=== PATIENT | male | born 1955 | race Native Hawaiian/Other Pacific Islander ===

== ENCOUNTER 2016-12-18 22:10 | Inpatient (IN) | payer SELFPAY ==
[2016-12-18] MEDS ORDERED: ZOFRAN IV ONE (22:23)
[2016-12-18] MEDS ORDERED: ATIVAN IV ONE (22:28)
[2016-12-18] MEDS ORDERED: ATIVAN ONE (22:28)
[2016-12-18] MEDS ORDERED: ATIVAN IV PRN ×3 (22:29)
--- NOTE | 2016-12-18 23:23 | Emergency Department Report ---
ED N/V/D HPI - General Chief complaint: Nausea/Vomiting/Diarrhea Stated complaint: EMESIS Time Seen by Provider: 12/18/16 22:27 Source: patient, EMS Mode of arrival: Stretcher Limitations: No Limitations - History of Present Illness Initial comments: 61-year-old male presents to the emergency department via EMS complaining of nausea and vomiting. Patient states she began vomiting this morning. He is had multiple bouts of emesis. He denies seeing any blood. He also denies abdominal pain or diarrhea. There has been no fever. Patient does report that he is a heavy alcohol drinker, and has not had a drink in over 24 hours. He is also not been taking his high blood pressure medication or his seizure medication. He has not had a seizure. There are no other complaints. MD complaint: nausea, vomiting -: Gradual, This morning Description of Vomiting: food contents, watery Associated Abdominal Pain: No Consistency: intermittent Improves with: none Worsens with: none Context: alcohol abuse Associated Symptoms: denies other symptoms - Related Data Allergies Allergy/AdvReac Type Severity Reaction Status Date / Time Penicillins Allergy Severe Anaphylaxis Verified 12/18/16 22:23 ED Review of Systems ROS: Stated complaint: EMESIS Other details as noted in HPI Comment: All other systems reviewed and negative Gastrointestinal: nausea, vomiting ED Past Medical Hx - Past Medical History Previous Medical History?: Yes Hx Hypertension: Yes Hx Arthritis: Yes Hx Seizures: Yes - Surgical History Past Surgical History?: No - Family History Family history: no significant - Social History Smoking Status: Never Smoker Substance Use Type: Alcohol ED Physical Exam - General Limitations: No Limitations General appearance: alert, in no apparent distress - Head Head exam: Present: atraumatic, normocephalic - Eye Eye exam: Present: normal appearance, PERRL, EOMI - ENT ENT exam: Present: normal exam, normal orophraynx, mucous membranes moist - Neck Neck exam: Present: normal inspection, full ROM. Absent: tenderness - Respiratory Respiratory exam: Present: normal lung sounds bilaterally. Absent: respiratory distress - Cardiovascular Cardiovascular Exam: Present: normal rhythm, tachycardia, normal heart sounds - GI/Abdominal GI/Abdominal exam: Present: soft, normal bowel sounds. Absent: distended, tenderness - Extremities Exam Extremities exam: Present: normal inspection, full ROM. Absent: tenderness - Back Exam Back exam: Present: normal inspection, full ROM. Absent: tenderness - Neurological Exam Neurological exam: Present: alert, oriented X3, other (tremulousness noted). Absent: motor sensory deficit - Skin Skin exam: Present: warm, dry, intact ED Course Vital Signs 12/18/16 12/18/16 12/18/16 22:10 22:18 22:31 Temperature 98.2 F Pulse Rate 151 H 151 H 156 H Respiratory 29 H 27 H Rate Blood Pressure 153/51 172/66 O2 Sat by Pulse 100 98 Oximetry 12/18/16 12/18/16 12/19/16 23:00 23:30 00:00 Temperature Pulse Rate 147 H 147 H 147 H Respiratory 27 H 29 H 34 H Rate Blood Pressure 167/71 167/83 158/87 O2 Sat by Pulse Oximetry ED Medical Decision Making - Lab Data Result diagrams: 12/18/16 23:24 12/18/16 23:24 - EKG Data -: EKG Interpreted by Me EKG shows normal: sinus rhythm, axis, intervals, QRS complexes, ST-T waves Rate: tachycardia - EKG Data When compared to previous EKG there are: previous EKG unavailable Interpretation: normal EKG - Medical Decision Making Lab results reviewed. Giving additional IV fluids. Patient is to be admitted by the hospitalist. - Differential Diagnosis alcohol withdrawal, dehydration, electrolyte abnormality Critical care attestation.: If time is entered above; I have spent that time in minutes in the direct care of this critically ill patient, excluding procedure time. ED Disposition Clinical Impression: Alcohol withdrawal Qualifiers: Complication of substance-induced condition: uncomplicated Qualified Code(s): F10.230 - Alcohol dependence with withdrawal, uncomplicated Disposition: OP ADMIT IP TO THIS HOSP Is pt being admited?: Yes Condition: Stable Referrals: PRIMARY CARE, [Primary Care Provider] - 3-5 Days Time of Disposition: 01:10
[2016-12-18 23:56] LABS: Mean Corpuscular HGB Conc 30 % (32-34); Mean Corpuscular Hemoglobin 32 pg (28-32); Mean Corpuscular Volume 108 fl (84-94); Platelet Count 197 K/mm3 (140-440); Red Blood Count 4.27 M/mm3 (3.65-5.03); White Blood Count 17.8 K/mm3 (4.5-11.0)
[2016-12-18 23:58] LABS: Hematocrit 45.9 % (35.5-45.6); Hemoglobin 13.6 gm/dl (11.8-15.2)
[2016-12-19 00:15] LABS: Magnesium 1.4 mg/dL (1.7-2.3); Phosphorous 8.9 mg/dL (2.5-4.5)
[2016-12-19 00:17] LABS: Albumin 4.7 g/dL (3.9-5); Albumin/Globulin Ratio 1.5 %; BUN/Creatinine Ratio 13.57; Bilirubin,Direct 0.5 mg/dL (0-0.2); Bilirubin,Indirect 0.5 mg/dL; Calcium 8.9 mg/dL (8.4-10.2); Potassium 5.1 mmol/L (3.6-5.0); Total Protein 7.9 g/dL (6.3-8.2)
[2016-12-19] MEDS ORDERED: NACL 0.9% 1000 ML 1,000 ML IV ONE (00:33)
[2016-12-19 00:49] LABS: Basophils % (Manual) 0 % (0.0-1.8); Blastocytes % (Manual) 0 %; Eosinophils % (Manual) 0 % (0.0-4.3)
[2016-12-19 00:50] LABS: Diff Status Complete; Platelet Estimate Consistent w Auto; RBC Morphology Normal
[2016-12-19] MEDS ORDERED: MAGNESIUM SULFATE 3 GM in NACL 0.9% 100 ML IV ONE (02:11)
[2016-12-19] MEDS ORDERED: VITAMIN B-1 100 MG, FOLVITE 1 MG, INFUVITE 10 ML in NACL 0.9% 1000 ML 1,000 ML IV ONE (02:12)
--- NOTE | 2016-12-19 02:19 | Admit Criteria Form ---
Admission Criteria Documentation: ALCOHOL AND PSYCHOACTIVE SUBSTANCE WITHDRAWAL Clinical Indications for Inpatient Care (Place ' X' for any and all applicable criteria): Ongoing inpatient care may be indicated for substance withdrawal[B][C] with ANY ONE of the following(1)(2)(3)(4)(21): [ ]I. Delirium due to alcohol or sedative[D] withdrawal is present. [ X]II. Marked signs of withdrawal are present as indicated by ANY ONE of the following(15)(22)(23) [ X]a) Heart rate greater than 120 beats per minute is present. [ ]b) Severe vomiting is present (eg, precludes maintenance of oral hydration). [ ]c) Grossly visible tremor is present. [ ]d) Profuse perspiration is present. [ ]e) Temperature greater than 101 degrees F (38.3 degrees C) is present. [ ]f) Other signs of severe withdrawal are present (eg, Altered mental status ) [ ]g) Severe withdrawal identified by standardized assessment score[A] [ ]III. Signs of withdrawal that require continued inpatient treatment as indicated by ANY ONE of the following(15)(22)(23): [ ]a) Inadequate response to pharmacotherapy (eg, benzodiazepines) [ ]b) Outpatient or lower level of care is not feasible or appropriate (eg, unavailable or inappropriate to patient condition or treatment history). [ ]IV. Withdrawal signs with high-risk indicator are present as manifested by ALL of the following[A](15)(22)(23) [ ]a) Signs of withdrawal are present as indicated by ANY ONE of the following: [ ]i. Tachycardia is present. [ ]ii. Nausea or vomiting is present. [ ]iii. Tremor is present. [ ]iv. Increased perspiration is present. [ ]v. Other signs of withdrawal are present. [ ]vi. Withdrawal identified by standardized assessment score [A] [ ]b) Elevated risk due to historical or comorbid factor is present as indicated by ANY ONE of the following: [ ]i. History of delirium due to withdrawal is present. [ ]ii. History of seizures due to withdrawal is present.[E] [ ]iii. Intrinsic seizure disorder (epilepsy) is present. [ ]iv. Patient is . [ ]v. Other significant medical history (eg, severe cardiac disease) is present, which is assessed to be at risk for destabilization due to withdrawal. [ ]V. Serious electrolyte abnormalities (eg, hyponatremia, hypokalemia, hypophosphatemia) requiring correction performable only in inpatient setting(6)(25) [ ]. Severe hypoglycemia requiring glucose infusions performable only in inpatient setting(6) [ ]VII. Drug toxicity or instability, such as Altered mental status, respiratory depression, or arrhythmias, that requires inpatient care [ ]VIII. Danger judged unmanageable at lower level of care because of ANY ONE of the following [ ]a) Danger to self [ ]b) Danger to others [ ]c) Grave disability (eg, inability to perform self-care necessary at lower level of care) The original [facility] Care Guidelines content created by [facility] has been revised. The portions of the content which have been revised are identified through the use of italic text or in bold. [facility] Guidelines has neither reviewed nor approved the modified material. All other unmodified content is copyright [facility] Care Guidelines. Please see references footnoted in the original [facility] Care[facility] edition 2016 Admission Criteria Met: Yes
--- NOTE | 2016-12-19 02:32 | History and Physical Report ---
History of Present Illness Date of examination: 12/19/16 Date of admission: 12/19/2016 Chief complaint: Chief complaint is nausea vomiting, other complaints include alcohol abuse and the need for detoxification History of present illness: History of present illness, patient is a 61-year-old male presenting with nausea vomiting going on for few days and also patient is requesting for detoxification for alcohol abuse which he said goes on a regular basis. There is no history of abdominal pain, no history of shortness of breath fever or chest pain. Patient also said that is not being compliant with his antihypertensive and anti-seizure medications. Past History Past Medical History: arthritis, hypertension, seizures, other (Alcohol Abuse) Past Surgical History: No surgical history Social history: alcohol abuse Family history: no significant family history Medications and Allergies Allergies Allergy/AdvReac Type Severity Reaction Status Date / Time Penicillins Allergy Severe Anaphylaxis Verified 12/18/16 22:23 Active Meds: Active Medications Heparin Sodium (Porcine) (Heparin) 5,000 unit SUB-Q Q12HR ROB Magnesium Sulfate 3 gm/ Sodium (Chloride) 106 mls @ 35.333 mls/hr IV ONCE ONE Stop: 12/19/16 05:10 Thiamine HCl 100 mg/ Folic Acid 1 mg/ Multivitamins/Minerals 10 ml/ Sodium Chloride 1,011.2 mls @ 250 mls/hr IV ONCE ONE Stop: 12/19/16 06:14 Levetiracetam (Keppra) 500 mg PO Q12HR ROB Lorazepam (Ativan) 2 mg IV Q1HR PRN PRN Reason: CIWA-Ar 8-15 Lorazepam (Ativan) 4 mg IV Q1HR PRN PRN Reason: CIWA-Ar 16-25 Lorazepam (Ativan) 4 mg IV Q15MIN PRN PRN Reason: CIWA-Ar >25 Review of Systems Constitutional: no weight loss, no weight gain, no fever, no chills, no sweats, no anorexia, no fatigue, no weakness, no malaise, no lethargy, no chronic headaches, no poor appetite, no daytime sleepiness, no chronic pain Eyes: bilateral: other (NO BILATERAL EYE SYMPTOMS) Ears, nose, mouth and throat: no ear pain, no ear discharge, no tinnitis, no decreased hearing, no nose pain, no nasal congestion, no nasal discharge, no sinus pressure, no bleeding gums, no dental pain, no mouth pain, no dysphagia, no hoarseness, no sore throat, no swelling in mouth, no post-nasal drip, no headache, no vertigo Cardiovascular: high blood pressure, no chest pain, no orthopnea, no rapid/ irregular heart beat, no syncope, no lightheadedness, no shortness of breath, no dyspnea on exertion, no paroxysmal nocturnal dyspnea Respiratory: no cough, no cough with sputum, no excessive sputum, no hemoptysis , no shortness of breath, no congestion, no wheezing, no pleurisy, no pain on inspiration, no sleep apnea, no home oxygen Gastrointestinal: nausea, vomiting, no abdominal pain, no diarrhea, no constipation, no change in bowel habits, no hematemesis, no coffee ground emesis , no melena, no loss of appetite, no heartburn, no indigestion, no jaundice, no dyspepsia/bloating, no early satiety, no lactose intolerance Genitourinary Male: no dysuria, no hematuria, no flank pain, no discharge, no urinary frequency, no urinary hesitancy, no nocturia, no incontinence, no erectile dysfunction, no impotence, no decreased libido, no testicular pain, no testicular lump, no difficulties fathering child, no polyuria Rectal: no pain, no incontinence, no itching, no hemorrhoids, no flatulence Musculoskeletal: no neck stiffness, no neck pain, no shooting arm pain, no arm numbness/tingling, no low back pain, no shooting leg pain, no leg numbness/ tingling, no morning stiffness, no muscle weakness, no muscle cramps, no myalgias, no atrophy, no loss of height, no prior amputations Integumentary: no rash, no pruritis, no redness, no sores, no wounds, no jaundice, no boils, no blisters, no growths, no bullae, no lesions, no darkening of skin, no depigmentation, no acne, no dryness, no color changes, no brittle nails, no striae, no hirsutism, no foot/leg ulcers, no onychomycosis Neurological: no head injury, no transient paralysis, no paralysis, no weakness , no parathesias, no numbness, no tingling, no seizures, no syncope, no tremors , no vertigo, no headaches, no migraines, no convulsions, no aphasia, no change in speech, no change in mentation, no memory loss, no changes in smell/taste, no gait dysfunction, no motor disturbance, no sensory deficit, no double vision , no loss of vision, no hearing difficulties, no burning pain, no paralysis Psychiatric: no anxiety, no memory loss, no change in sleep habits, no sleep disturbances, no insomnia, no hypersomnia, no change in appetite, no change in libido, no suicidal ideation, no disorientation, no depression, no hopelessness , no anhedonia, no anxiety attacks, no difficulties concentrating, no confusion , no irritability, no sadness/tearfullness Endocrine: no cold intolerance, no heat intolerance, no polyphagia, no polydipsia, no polyuria, no nocturia, no excessive sweating, no increase in ring /shoe/hat size, no proptosis, no high blood sugars Hematologic/Lymphatic: no easy bruising, no easy bleeding, no lymphadenopathy, no lymphedema, no thrombophilia Allergic/Immunologic: no urticaria, no persistent infections, no anaphylaxis Exam - Constitutional Vitals: Temp Pulse Resp BP Pulse Ox 98.2 F 147 H 34 H 158/87 98 12/18/16 22:10 12/19/16 00:00 12/19/16 00:00 12/19/16 00:00 12/18/16 22:18 General appearance: Present: mild distress, well-nourished. Absent: disheveled - EENT Eyes: Present: PERRL, EOM intact. Absent: scleral icterus, conjunctival injection, exopthalmos, mydriasis, discharge ENT: hearing intact, clear oral mucosa, dentition normal, no oropharyngeal erythema, no poor dentition, no edentulous - Neck Neck: Present: supple, normal ROM. Absent: enlarged thyroid, masses or JVD, carotid bruits - Respiratory Respiratory effort: normal - Cardiovascular Rhythm: regular Heart Sounds: Present: S1 & S2. Absent: systolic murmur, diastolic murmur, rub , click - Extremities Extremities: no ischemia, No edema Peripheral Pulses: within normal limits - Abdominal General gastrointestinal: Present: soft, non-tender, non-distended, normal bowel sounds. Absent: tender, distended, rigid, hepatomegaly, splenomegaly, mass Male genitourinary: Present: deferred - Rectal Rectal Exam: deferred - Integumentary Integumentary: Present: clear, warm, dry. Absent: erythema, jaundice, rash, clammy, normal turgor, decreased turgor - Musculoskeletal Musculoskeletal: strength equal bilaterally, right sided weakness - Psychiatric Psychiatric: appropriate mood/affect - Neurologic Neurologic: CNII-XII intact Results - Labs CBC & Chem 7: 12/18/16 23:24 12/18/16 23:24 Labs: Laboratory Last Values WBC 17.8 K/mm3 (4.5-11.0) H 12/18/16 23:24 RBC 4.27 M/mm3 (3.65-5.03) 12/18/16 23:24 Hgb 13.6 gm/dl (11.8-15.2) 12/18/16 23:24 Hct 45.9 % (35.5-45.6) H 12/18/16 23:24 MCV 108 fl (84-94) H 12/18/16 23:24 MCH 32 pg (28-32) 12/18/16 23:24 MCHC 30 % (32-34) L 12/18/16 23:24 RDW 15.0 % (13.2-15.2) 12/18/16 23:24 Plt Count 197 K/mm3 (140-440) 12/18/16 23:24 Add Manual Diff Complete 12/18/16 23:24 Total Counted 100 12/18/16 23:24 Seg Neuts % (Manual) 79.0 % (40.0-70.0) H 12/18/16 23:24 Band Neutrophils % 7.0 % 12/18/16 23:24 Lymphocytes % (Manual) 5.0 % (13.4-35.0) L 12/18/16 23:24 Reactive Lymphs % (Man) 0 % 12/18/16 23:24 Monocytes % (Manual) 9.0 % (0.0-7.3) H 12/18/16 23:24 Eosinophils % (Manual) 0 % (0.0-4.3) 12/18/16 23:24 Basophils % (Manual) 0 % (0.0-1.8) 12/18/16 23:24 Metamyelocytes % 0 % 12/18/16 23:24 Myelocytes % 0 % 12/18/16 23:24 Promyelocytes % 0 % 12/18/16 23:24 Blast Cells % 0 % 12/18/16 23:24 Nucleated RBC % Not Reportable 12/18/16 23:24 Seg Neutrophils # Man 14.1 K/mm3 (1.8-7.7) H 12/18/16 23:24 Band Neutrophils # 1.2 K/mm3 12/18/16 23:24 Lymphocytes # (Manual) 0.9 K/mm3 (1.2-5.4) L 12/18/16 23:24 Abs React Lymphs (Man) 0.0 K/mm3 12/18/16 23:24 Monocytes # (Manual) 1.6 K/mm3 (0.0-0.8) H 12/18/16 23:24 Eosinophils # (Manual) 0.0 K/mm3 (0.0-0.4) 12/18/16 23:24 Basophils # (Manual) 0.0 K/mm3 (0.0-0.1) 12/18/16 23:24 Metamyelocytes # 0.0 K/mm3 12/18/16 23:24 Myelocytes # 0.0 K/mm3 12/18/16 23:24 Promyelocytes # 0.0 K/mm3 12/18/16 23:24 Blast Cells # 0.0 K/mm3 12/18/16 23:24 WBC Morphology Not Reportable 12/18/16 23:24 Hypersegmented Neuts Not Reportable 12/18/16 23:24 Hyposegmented Neuts Not Reportable 12/18/16 23:24 Hypogranular Neuts Not Reportable 12/18/16 23:24 Smudge Cells Not Reportable 12/18/16 23:24 Toxic Granulation Not Reportable 12/18/16 23:24 Toxic Vacuolation Not Reportable 12/18/16 23:24 Dohle Bodies Not Reportable 12/18/16 23:24 Pelger-Huet Anomaly Not Reportable 12/18/16 23:24 Danyel Rods Not Reportable 12/18/16 23:24 Platelet Estimate Consistent w auto 12/18/16 23:24 Clumped Platelets Not Reportable 12/18/16 23:24 Plt Clumps, EDTA Not Reportable 12/18/16 23:24 Large Platelets Not Reportable 12/18/16 23:24 Giant Platelets Not Reportable 12/18/16 23:24 Platelet Satelliting Not Reportable 12/18/16 23:24 Plt Morphology Comment Not Reportable 12/18/16 23:24 RBC Morphology Normal 12/18/16 23:24 Dimorphic RBCs Not Reportable 12/18/16 23:24 Polychromasia Not Reportable 12/18/16 23:24 Hypochromasia Not Reportable 12/18/16 23:24 Poikilocytosis Not Reportable 12/18/16 23:24 Anisocytosis Not Reportable 12/18/16 23:24 Microcytosis Not Reportable 12/18/16 23:24 Macrocytosis Not Reportable 12/18/16 23:24 Spherocytes Not Reportable 12/18/16 23:24 Pappenheimer Bodies Not Reportable 12/18/16 23:24 Sickle Cells Not Reportable 12/18/16 23:24 Target Cells Not Reportable 12/18/16 23:24 Tear Drop Cells Not Reportable 12/18/16 23:24 Ovalocytes Not Reportable 12/18/16 23:24 Helmet Cells Not Reportable 12/18/16 23:24 Mendez-Stockwell Bodies Not Reportable 12/18/16 23:24 [place] Rings Not Reportable 12/18/16 23:24 Hay Cells Not Reportable 12/18/16 23:24 Bite Cells Not Reportable 12/18/16 23:24 Crenated Cell Not Reportable 12/18/16 23:24 Elliptocytes Not Reportable 12/18/16 23:24 Acanthocytes (Spur) Not Reportable 12/18/16 23:24 Rouleaux Not Reportable 12/18/16 23:24 Hemoglobin C Crystals Not Reportable 12/18/16 23:24 Schistocytes Not Reportable 12/18/16 23:24 Malaria parasites Not Reportable 12/18/16 23:24 William Bodies Not Reportable 12/18/16 23:24 Hem Pathologist Commnt No 12/18/16 23:24 VBG pH 7.251 (7.320-7.420) L 12/19/16 00:42 Sodium 141 mmol/L (137-145) 12/18/16 23:24 Potassium 5.1 mmol/L (3.6-5.0) H 12/18/16 23:24 Chloride 90.0 mmol/L (98-107) L 12/18/16 23:24 Carbon Dioxide 6 mmol/L (22-30) L* 12/18/16 23:24 Anion Gap 50 mmol/L 12/18/16 23:24 BUN 19 mg/dL (9-20) 12/18/16 23:24 Creatinine 1.4 mg/dL (0.8-1.5) 12/18/16 23:24 Estimated GFR 52 ml/min 12/18/16 23:24 BUN/Creatinine Ratio 13.57 % 12/18/16 23:24 Glucose 155 mg/dL (75-100) H 12/18/16 23:24 Calcium 8.9 mg/dL (8.4-10.2) 12/18/16 23:24 Phosphorus 8.90 mg/dL (2.5-4.5) H 12/18/16 23:24 Magnesium 1.40 mg/dL (1.7-2.3) L 12/18/16 23:24 Total Bilirubin 1.00 mg/dL (0.1-1.2) 12/18/16 23:24 Direct Bilirubin 0.5 mg/dL (0-0.2) H 12/18/16 23:24 Indirect Bilirubin 0.5 mg/dL 12/18/16 23:24 AST 98 units/L (5-40) H 12/18/16 23:24 ALT 54 units/L (7-56) 12/18/16 23:24 Alkaline Phosphatase 93 units/L (35-129) 12/18/16 23:24 Total Protein 7.9 g/dL (6.3-8.2) 12/18/16 23:24 Albumin 4.7 g/dL (3.9-5) 12/18/16 23:24 Albumin/Globulin Ratio 1.5 % 12/18/16 23:24 Amylase 125 units/L (27-131) 12/18/16 23:24 Lipase 19 units/L (13-60) 12/18/16 23:24 Assessment and Plan - Patient Problems (1) Low magnesium level Current Visit: Yes Status: Acute (2) Alcohol withdrawal Current Visit: Yes Status: Acute Qualifiers: Complication of substance-induced condition: uncomplicated Qualified Code(s ): F10.230 - Alcohol dependence with withdrawal, uncomplicated Plan to address problem: Patient will be admitted to medical floor on telemetry and will be on IV normal saline, 1 L mixed with 100 mg of thiamine, 1 mg of folic acid and 1 amp of multivitamin and ran at 125 mg an hour. She will be on CIWA protocol and will have to grams of magnesium sulfate mixing normal saline and given IV. Patient will have magnesium level and basic metabolic panel checked in the morning and will have mental health consult for alcohol detoxification. Patient will be restarted on his medication Keppra 500 mg twice daily which he takes for seizure disorder and which was discontinued without the doctor's recommendation. Patient will be on IV Zofran 4 mg every 6 hours as needed for nausea vomiting I will be on Tylenol 650 mg by mouth every 4 hours for fever and headache
[2016-12-19] MEDS: KEPPRA PO SCH ×3 (03:32→21:16)
[2016-12-19 04:35] LABS: Bacteria,Urine 1+ /HPF (Negative); Bilirubin,Urine NEG (Negative); Blood,Urine LG (Negative); Ketones,Urine 20 mg/dL (Negative); Leukocyte Esterase,Urine NEG (Negative); Mucus,Urine FEW /HPF; Nitrite,Urine NEG (Negative); Urobilinogen,Urine < 2.0 mg/dL (<2.0)
[2016-12-19 04:36] LABS: RBC,Urine > 182.0 /HPF (0.0-6.0)
[2016-12-19] MEDS ORDERED: SODIUM BICARBONATE 150 MEQ in D5W 1,000 ML IV SCH (08:30)
--- NOTE | 2016-12-19 09:03 | Consultation ---
History of Present Illness - Reason for Consult Consult date: 12/19/16 acute renal failure, metabolic acidosis - History of Present Illness Patient is a 61-year-old male with history significant for Hypertension , Seizure disorder and Alcohol abuse presented to the ER complaining of nausea and vomiting. Patient is a poor historian. Patient developed nausea and vomiting yesterday morning. He had multiple bouts of non-bloody emesis. Patient denies any abdominal pain, diarrhea, dysuria, hematuria, dizziness, syncope, cp, sob, cough or fever. Patient does report h/o heavy alcohol intake. He drinks atleast 2 pints of Vodka daily. His last drink was 2 days ago. He is not been taking his Hypertension and seizure medication. Initial creatinine was 1.4 and has improved to 0.8 and bicarb improved from 6 to 21. Past History Past Medical History: arthritis, hypertension, seizures, other (Alcohol Abuse) Past Surgical History: No surgical history Social history: alcohol abuse Family history: no significant family history Medications and Allergies Allergies Allergy/AdvReac Type Severity Reaction Status Date / Time Penicillins Allergy Severe Anaphylaxis Verified 12/18/16 22:23 Home Medications Medication Instructions Recorded Confirmed Last Taken Type Unobtainable 12/19/16 12/19/16 Unknown History Active Meds: Active Medications Heparin Sodium (Porcine) (Heparin) 5,000 unit SUB-Q Q12HR [facility] Sodium Bicarbonate 150 meq/ (Dextrose) 1,150 mls @ 75 mls/hr IV DIRECT ROB Ceftriaxone Sodium (Rocephin/Ns 1 Gm/50 Ml) 1 gm in 50 mls @ 100 mls/hr IV Q24HR ROB PRN Reason: Protocol Levetiracetam (Keppra) 500 mg PO Q12HR ROB Last Admin: 12/19/16 03:32 Dose: 500 mg Lorazepam (Ativan) 2 mg IV Q1HR PRN PRN Reason: CIWA-Ar 8-15 Last Admin: 12/19/16 04:15 Dose: 2 mg Lorazepam (Ativan) 4 mg IV Q1HR PRN PRN Reason: CIWA-Ar 16-25 Lorazepam (Ativan) 4 mg IV Q15MIN PRN PRN Reason: CIWA-Ar >25 Review of Systems ROS unobtainable: due to mental status Exam - Vital Signs Vital signs: Vital Signs Temp Pulse BP Pulse Ox 98.2 F 151 H 153/51 100 12/18/16 22:10 12/18/16 22:10 12/18/16 22:10 12/18/16 22:10 - General Appearance General appearance: well-developed, appears stated age, other (somnolent, no distress) EENT: ATNC, PERRL, mucous membranes dry, hearing intact Neck: Present: neck supple, trachea midline Respiratory: Clear to Ascultation Heart: regular, S1S2, no murmurs Gastrointestinal: Present: normoactive bowel sounds. Absent: tenderness, distended Integumentary: no rash Neurologic: no focal deficit, no asterixis, other (some confusion noted) Musculoskeletal: Present: other (no edema) Psychiatric: cooperative Results - Lab Results 12/18/16 23:24 12/19/16 08:57 Most recent lab results Calcium 8.9 mg/dL (8.4-10.2) 12/18/16 23:24 Phosphorus 8.90 mg/dL (2.5-4.5) H 12/18/16 23:24 Magnesium 1.40 mg/dL (1.7-2.3) L 12/18/16 23:24 Assessment and Plan - Patient Problems (1) ANIKA (acute kidney injury) Current Visit: Yes Status: Acute Plan to address problem: Acute Kidney Injury most likely hemodynamically mediated in the setting of volume depletion. Renal function has improved. Continue IV fluids to treat volume depletion. Will follow labs. (2) Metabolic acidosis, increased anion gap Current Visit: Yes Status: Acute Plan to address problem: Likely from combination heavy alcohol consumption, ketosis and ANIKA. Improved now. (3) Low magnesium level Current Visit: Yes Status: Acute Plan to address problem: Improved. (4) Alcohol withdrawal Current Visit: Yes Status: Acute Qualifiers: Complication of substance-induced condition: uncomplicated Qualified Code(s ): F10.230 - Alcohol dependence with withdrawal, uncomplicated
[2016-12-19 09:34] LABS: Blood Urea Nitrogen 20 mg/dL (9-20); Calcium 8.5 mg/dL (8.4-10.2); Carbon Dioxide 21 mmol/L (22-30); Chloride 101.2 mmol/L (98-107); Glucose 157 mg/dL (75-100); Potassium 4.1 mmol/L (3.6-5.0); Sodium 139 mmol/L (137-145)
[2016-12-19 09:35] LABS: Blood Urea Nitrogen 20 mg/dL (9-20); Calcium 8.5 mg/dL (8.4-10.2); Carbon Dioxide 21 mmol/L (22-30); Chloride 101.7 mmol/L (98-107); Glucose 156 mg/dL (75-100); Potassium 4.1 mmol/L (3.6-5.0); Sodium 138 mmol/L (137-145)
[2016-12-19 09:49] LABS: Anion Gap 19 mmol/L; Anion Gap 21 mmol/L
[2016-12-19] MEDS ORDERED: NACL 0.9% 1000 ML 1,000 ML IV SCH (11:00)
[2016-12-19 11:08] LABS: Phosphorous 1.6 mg/dL (2.5-4.5)
--- NOTE | 2016-12-19 15:54 | Event Note ---
Date: 12/19/16 Recent was seen and evaluated this morning, chart and labs were reviewed. Patient admitted for UTI and alcohol withdrawal. Patient is on alcohol withdrawal protocol and he is on IV ceftriaxone for UTI. Continue IV fluids and supportive care.
[2016-12-19] MEDS: ROCEPHIN/NS 1 GM/50 ML 1 GM/50 ML BAG IV SCH (16:47)
[2016-12-19] MEDS: HEPARIN SUB-Q SCH ×2 (16:48→21:16)
[2016-12-19] MEDS ORDERED: APRESOLINE IV PRN (21:21)
[2016-12-19] MEDS: COZAAR PO SCH (22:18)
[2016-12-20] MEDS ORDERED: APRESOLINE IV PRN
[2016-12-20 05:06] LABS: Basophils % (Auto) 0.2 % (0.0-1.8); Eosinophils % (Auto) 0.1 % (0.0-4.3); Hematocrit 35.9 % (35.5-45.6); Mean Corpuscular HGB Conc 34 % (32-34); Mean Corpuscular Hemoglobin 32 pg (28-32); Mean Corpuscular Volume 97 fl (84-94); Platelet Count 132 K/mm3 (140-440); Red Blood Count 3.72 M/mm3 (3.65-5.03); Red Cell Distribution Width 13.6 % (13.2-15.2); White Blood Count 10.6 K/mm3 (4.5-11.0)
[2016-12-20 05:21] LABS: BUN/Creatinine Ratio 28.33; Blood Urea Nitrogen 17 mg/dL (9-20); Calcium 8.5 mg/dL (8.4-10.2); Carbon Dioxide 22 mmol/L (22-30); Glucose 83 mg/dL (75-100)
[2016-12-20 05:22] LABS: Anion Gap 20 mmol/L; Chloride 100.1 mmol/L (98-107); Potassium 3.3 mmol/L (3.6-5.0); Sodium 139 mmol/L (137-145)
--- NOTE | 2016-12-20 09:51 | Discharge Summary ---
Providers - Providers Date of Admission: 12/19/16 01:10 Date of discharge: 12/20/16 Attending physician: DANITA MARTEL MD 12/19/16 06:12 psychiatry consult [Consult to Mental Health] [CONS] Routine Reason For Exam: ALCOHOL ABUSE IN NEED OF DETOX Place consult to:: MENTAL HEALTH Notified:: gonzalo Was contact made?: Yes Time called:: 08:28 12/19/16 07:55 Consult to Physician [CONS] Routine Consulting Provider: MANINDER BUTLER Reason For Exam: metabolic acidosis Place consult to:: luke Notified:: yes Was contact made?: Yes If yes, spoke with:: Dr butler Time called:: 08:50 Primary care physician: REAL ESTATE ANALYST Hospitalization Reason for admission: Alcohol withdrawal seizure, alcohol abuse Condition: Stable Hospital course: History of present illness, patient is a 61-year-old male presenting with nausea vomiting going on for few days and also patient is requesting for detoxification for alcohol abuse which he said goes on a regular basis. There is no history of abdominal pain, no history of shortness of breath fever or chest pain. Patient also said that is not being compliant with his antihypertensive and anti-seizure medications. Patient was admitted to the floor, his seizure and blood pressure medications were restarted, patient was put on CIWA protocol. Patient was and cooperative. No withdrawal symptoms. psychiatry evaluated him and recommended outpatient alcohol rehabilitation and resources were given. Patient is hemodynamically stable at the time of discharge. Patient's questions and concerns were addressed at the bedside. Patient's medications were reviewed and updated at the time of discharge. Disposition: - TO HOME OR SELFCARE Time spent for discharge: 31 minutes - Discharge Diagnoses (1) ANIKA (acute kidney injury) Status: Acute (2) Alcohol withdrawal Status: Acute Qualifiers: Complication of substance-induced condition: uncomplicated Qualified Code(s ): F10.230 - Alcohol dependence with withdrawal, uncomplicated (3) Low magnesium level Status: Acute (4) Metabolic acidosis, increased anion gap Status: Acute Core Measure Documentation - Palliative Care Palliative Care/ Comfort Measures: Not Applicable - Core Measures Any of the following diagnoses?: none Exam - Physical Exam Narrative exam: Not in cardiopulmonary distress. The patient appeared well nourished and normally developed. Vital signs as documented. Head exam is unremarkable. No scleral icterus . Neck is without jugular venous distension, thyromegaly, or carotid bruits. Lungs are clear to auscultation. Cardiac exam reveals regular rate and Rhythm. First and second heart sounds normal. No murmurs, rubs or gallops. Abdominal exam reveals normal bowel sounds, no masses, no organomegaly and no aortic enlargement. Extremities are nonedematous and both femoral and pedal pulses are normal. 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 No focal weakness. - Constitutional Vitals: Temp Pulse Resp BP Pulse Ox 99.2 F 88 20 164/87 98 12/20/16 06:10 12/20/16 06:10 12/20/16 06:10 12/20/16 06:10 12/20/16 06:10 Plan Activity: no restrictions Weight Bearing Status: Full Weight Bearing Diet: low salt Follow up with: PRIMARY CARE, [Primary Care Provider] - 3-5 Days Prescriptions: Folic Acid [Folvite] 1 mg PO QDAY #30 tablet levETIRAcetam [Keppra TAB] 500 mg PO Q12HR #60 tablet Losartan [Cozaar] 100 mg PO QDAY #30 tablet Thiamine [Vitamin B-1] 100 mg PO QDAY #30 tablet
[2016-12-20] MEDS ORDERED: FOLVITE PO SCH (10:00)
[2016-12-20] MEDS ORDERED: VITAMIN B-1 PO SCH (10:00)
[2016-12-20] MEDS ORDERED: THERAGRAN Tab PO SCH (10:00)
[2016-12-20] MEDS ORDERED: K-DUR PO NR (10:30)
[2016-12-20 11:11] VITALS: BP 160/80
[2016-12-20] MEDS: COZAAR PO SCH (11:17)
[2016-12-20] MEDS: ROCEPHIN/NS 1 GM/50 ML 1 GM/50 ML BAG IV SCH (11:18)
[2016-12-20] MEDS: KEPPRA PO SCH (11:18)
[2016-12-20] MEDS: HEPARIN SUB-Q SCH (11:19)
--- NOTE | 2016-12-20 17:02 | Consultation ---
History of Present Illness - Reason for Consult Consult date: 12/20/16 Reason for consult: Mental Health Evaluation Requesting physician: MARILOU DELGADO - Chief Complaint Chief complaint: "I am okay" - History of Present Psychiatric Illness 61-year-old male presents to the emergency department via EMS complaining of nausea and vomiting. Psychiatry was consulted to see patient for alcohol abuse. Today patient is calm and cooperative during assessment. He stated that he drink alcohol because he enjoys it. He is aware that excessive etoh consumption can cause health problems. He stated that he plan to join a rehab service and AA once he is discharged. He stated that he consumed to much vodka prior to his admission to [facility]. He stated drinking for 30 years. He drink at least a pint of vodka a day. He stated that he will seek help for his chronic alcohol addiction. He denies SI/HI's, AVH's, and depression. He denies recreational drug use. Medications and Allergies Allergies Allergy/AdvReac Type Severity Reaction Status Date / Time Penicillins Allergy Severe Anaphylaxis Verified 12/18/16 22:23 Home Medications Medication Instructions Recorded Confirmed Last Taken Type Folic Acid [Folvite] 1 mg PO QDAY #30 tablet 12/20/16 Unknown Rx Losartan [Cozaar] 100 mg PO QDAY #30 tablet 12/20/16 Unknown Rx Thiamine [Vitamin B-1] 100 mg PO QDAY #30 tablet 12/20/16 Unknown Rx levETIRAcetam [Keppra TAB] 500 mg PO Q12HR #60 tablet 12/20/16 Unknown Rx Past psychiatric history - Past Medical History Past Medical History: arthritis, hypertension, seizures Past Surgical History: No surgical history - past Psychiatric treatment and history psychiatric treatment history: Denies a psy hx. Admit to a fam hx of alcoholism. - Social History Social history: lives with family Mental Status Exam - Vital signs Last Vital Signs Temp 98.0 F 12/20/16 11:10 Pulse 112 H 12/20/16 11:10 Resp 20 12/20/16 11:10 BP 160/80 12/20/16 11:10 Pulse Ox 94 12/20/16 11:10 - Exam Narrative exam: ROS: (-) depression MSE: Appearance: calm, cooperative Behavior: good eye contact Speech: regular rate and tone Mood: "I am fine" Affect: congruent to mood Thought Process: circumstantial Thought Content: denies HI/SI's and AVH's Motor Activity: ambulatory Cognition: A/Ox 3 Insight: fair Judgment: fair Results Result Diagrams: 12/20/16 04:24 12/20/16 04:24 Abnormal lab results 12/20/16 12/20/16 Range/Units 04:24 04:24 MCV 97 H D (84-94) fl Plt Count 132 L (140-440) K/mm3 [place] % (Auto) 8.3 H (0.0-7.3) % [place] # 0.9 H (0.0-0.8) K/mm3 Seg Neutrophils % 73.7 H (40.0-70.0) % Seg Neutrophils # 7.9 H (1.8-7.7) K/mm3 Potassium 3.3 L (3.6-5.0) mmol/L Creatinine 0.6 L (0.8-1.5) mg/dL Phosphorus 2.00 L D (2.5-4.5) mg/dL All other labs normal. Assessment and Plan Assessment and plan: Impression: Alcohol Use DO. Today patient is calm and cooperative during assessment. DDx: R/O Mood DO Recommendation/Plan: Patient given outpatient rehab services and AA information in his local area. Discussed the importance to abstain from alcohol consumption with patient.
== END 2016-12-20 12:48 | disposition home or self-care (01) | DRG 897 ==
LOC: ED 22:10 → 4A 12-19 01:10
PROVIDERS: ADMIT Internal Medicine; ATTEND Internal Medicine
DX: F10.230 Alcohol dependence with withdrawal, uncomplicated (principal); N17.9 Acute kidney failure, unspecified; E87.2 Acidosis; I10 Essential (primary) hypertension; M19.90 Unspecified osteoarthritis, unspecified site; E83.42 Hypomagnesemia; Z88.0 Allergy status to penicillin; G40.909 Epilepsy, unspecified, not intractable, without status epilepticus
CPT/HCPCS: 36415; 80048; 80053; 80074; 80320; 81001; 82140; 82150; 82550; 82805; 83690; 83735; 83930; 84100; 85007; 85025; 87040; 87086; 93005; 93010; 96374; 96375; 99285; 99406; G0480; J0696; J1644; J2060; J2405; J3411; J3475; J7030; J7070